=== PATIENT | male | born 1955 | race Caucasian/White ===

== ENCOUNTER → 2017-05-30 | Outpatient (CLI) | payer OTHER ==
--- NOTE | 2017-06-07 11:40 | P.ARTDOP ---
Arterial Doppler LOWER EXTREMITY ARTERIAL DOPPLER: DATE OF SERVICE: 05/30/2017 Reason for study: Plantar ulcer left foot with fatty layer exposed. Doppler waveforms: []. Pulse volume recording: []. Pressure gradients: None. Ankle-brachial indices: Greater than 1 bilaterally. Toe pressures: [] on the right, [] on the left Impression: This is a limited study due to patient's need to stay positioned in a wheelchair and the patient was totally unable to cooperate with the study. We simply were able to obtain ankle pressures. Patient has ankle-brachial indices are greater than 1 bilaterally. Limited study appears to be normal. Circulation probably adequate for healing, based on these numbers.
== END | disposition home or self-care (01) ==
LOC: RADUSWWP 12:15
PROVIDERS: ATTEND Family Medicine
DX: I87.2 Venous insufficiency (chronic) (peripheral) (principal); M79.605 Pain in left leg
CPT/HCPCS: 93922